=== PATIENT | female | born 1960 | race Caucasian/White ===

== ENCOUNTER → 2016-08-10 | Outpatient (CLI) | payer OTHER | LOC: KOH-I 13:54 | DX: I73.9 Peripheral vascular disease, unspecified (principal) | CPT/HCPCS: 93926 ==

== ENCOUNTER → 2016-08-10 | Outpatient (CLI) | payer OTHER ==
[2016-08-10 17:40] LABS: HEMOGLOBIN 13.6 gm/dl (12.3-15.3); RED BLOOD COUNT 4.41 M/UL (4.00-5.10); WHITE BLOOD COUNT 7.3 K/UL (4.5-11.0)
[2016-08-10 17:52] LABS: BUN/CREATININE RATIO 12 (0-10)
== END ==
LOC: LAB 16:08
PROVIDERS: Podiatrist Foot & Ankle Surgery
DX: M86.8X7 Other osteomyelitis, ankle and foot (principal); S91.302A Unspecified open wound, left foot, initial encounter
CPT/HCPCS: 36415; 80048; 85027; 86140

== ENCOUNTER → 2016-08-11 | Outpatient (CLI) | payer OTHER | LOC: NM 09:58 | DX: M86.472 Chronic osteomyelitis with draining sinus, left ankle and foot (principal); R93.7 Abnormal findings on diagnostic imaging of other parts of musculoskeletal system | CPT/HCPCS: 78315; A9503 ==

== ENCOUNTER → 2016-08-19 | Outpatient (CLI) | payer OTHER ==
[~2016-08-19] VITALS: Ht 157.5 cm; Wt 108.9 kg
[2016-08-19 12:46] LABS: BUN/CREATININE RATIO 15 (0-10)
== END ==
LOC: OPSV 11:00
PROVIDERS: Podiatrist Foot & Ankle Surgery
DX: Z45.2 Encounter for adjustment and management of vascular access device (principal); M86.9 Osteomyelitis, unspecified
CPT/HCPCS: 36592; 80048; 96365; 96366; J3370; J7070

== ENCOUNTER → 2016-10-07 | Outpatient (CLI) | payer OTHER | LOC: NM 07:30 | DX: M86.472 Chronic osteomyelitis with draining sinus, left ankle and foot (principal) | CPT/HCPCS: 78805; A9569 ==